=== PATIENT | female | born 1970 | race Two or more races ===

== ENCOUNTER 2018-09-13 22:26 | Emergency (ER) | payer MEDICAID, OTHER ==
[~2018-09-13] VITALS: Ht 165.1 cm; Wt 163.3 kg
[~2018-09-13 22:26] MED LIST: ASPI81CH43 PO; Atorvastatin Calcium PO; CALC500C3 PO; Verapamil Hcl PO
[2018-09-13 22:50] VITALS: BP 126/81
[2018-09-14] MEDS ORDERED: ACETAMINOPHEN 325 MG TAB PO ONE (05:45)
== END 2018-09-14 05:58 | disposition home or self-care (01) ==
LOC: ER 22:32
DX: S93.402A Sprain of unspecified ligament of left ankle, initial encounter (principal); S80.02XA Contusion of left knee, initial encounter; J45.909 Unspecified asthma, uncomplicated; Z88.0 Allergy status to penicillin; W19.XXXA Unspecified fall, initial encounter; Y93.89 Activity, other specified; Y99.8 Other external cause status; Y92.89 Other specified places as the place of occurrence of the external cause
CPT/HCPCS: 73560; 73630

== ENCOUNTER 2023-12-14 11:16 | Inpatient (IN) | payer MEDICAID, OTHER ==
[~2023-12-14] VITALS: Ht 165.1 cm; Wt 132.1 kg
[2023-12-14 13:28] LABS: Basophils # (auto) 0 10 ^3/uL (0-0.2); Basophils % (auto) 0.4 % (0.0-2.0); Eosinophils # (auto) 0.1 10 ^3/uL (0-0.8); Eosinophils % (auto) 1.2 % (0.0-7.0); Hematocrit 44.9 % (36.0-46.0); Hemoglobin 15.7 g/dL (12.2-16.2); Lymphocytes # (auto) 1.5 10 ^3/uL (0.4-5.4); Lymphocytes % (auto) 19.5 % (10.0-50.0); Mean Corpuscular Hemoglobin 31.1 pg (28.0-32.0); Mean Corpuscular Hgb Conc. 34.9 g/dL (32.0-36.0); Mean Corpuscular Volume 89.1 fL (80.0-100.0); Monocytes # (auto) 0.5 10 ^3/uL (0-1.3); Monocytes % (auto) 6.9 % (0.0-12.0); Neutrophils # (auto) 5.4 10 ^3/uL (1.6-8.6); Platelet Count (auto) 231 10^3/uL (140-450); Red Blood Cells 5.04 10^6/uL (4.0-5.20); Red Cell Distribution Width 13.7 % (11.8-14.3); White Blood Cell 7.5 10^3/uL (4.4-10.8)
[2023-12-14 13:48] LABS: Alanine Aminotransferase 28 U/L (7-40); Albumin 4.2 g/dL (3.2-4.8); Alkaline Phosphatase 100 U/L (46-116); Anion Gap 7 (5-15); Aspartate Aminotransferase 18 U/L (13-40); Bilirubin, Total 0.5 mg/dL (0.2-1.0); Blood Urea Nitrogen 12 mg/dL (9-23); Calcium 9.2 mg/dL (8.7-10.4); Carbon Dioxide 27 mmol/L (20-30); Chloride 106 mmol/L (98-107); Glucose 114 mg/dL (74-106); Magnesium 1.9 mg/dL (1.6-2.6); Potassium 4.1 mmol/L (3.5-5.1); Sodium 140 mmol/L (136-145)
[2023-12-14 13:49] LABS: Total Protein 7.3 g/dL (5.7-8.2)
[2023-12-14 15:55] LABS: Urine Bacteria None Seen /hpf (None Seen)
[2023-12-14 16:16] LABS: Urine Blood Negative /uL (Negative); Urine Clarity Clear (Clear); Urine Color Yellow (Yellow); Urine Hyaline Cast FEW /lpf (0 - 2); Urine Mucus FEW (None Seen); Urine Protein, UAD TRACE (Negative); Urine Specific Gravity 1.017 (1.001-1.035); Urine Urobilinogen Normal (Negative); Urine WBC 3 /hpf (0 - 5); Urine pH 6.5 (5.0-9.0)
[2023-12-14] MEDS ORDERED: MORPHINE SULFATE INJ 2 MG/ml SYRG IV PRN (16:45)
[2023-12-14] MEDS ORDERED: NITROGLYCERIN 0.4 MG SL TAB SL PRN (16:45)
[2023-12-14] MEDS ORDERED: DOCUSATE SOD 100 MG CAP PO PRN (16:45)
[2023-12-14] MEDS ORDERED: ONDANSETRON HCL 4 MG/2 ML VIAL IV PRN (16:45)
[2023-12-14] MEDS ORDERED: KETOROLAC TROMETH 30 MG/ML 1ML VIAL IV PRN (17:00)
[2023-12-14 18:02] VITALS: PULSE 88; RESP 16; O2SAT 94
[2023-12-14] MEDS: ASPirin 325 MG TAB PO ONE (18:10)
[2023-12-14] MEDS: SODIUM CHLORIDE 0.9% 500 ML IV ONE (18:17)
[2023-12-14] MEDS: NITROGLYCERIN 0.4 MG SL TAB SL ONE (18:17)
[2023-12-14] MEDS: ENOXAPARIN SOD 40 MG/0.4 ML SYRINGE SC SCH (18:34)
[2023-12-14 19:09] LABS: INR 1.08 (0.9-1.15); Partial Thromboplastin Time 27.9 SEC (24.5-34.5); Prothrombin Time 11.4 sec (9.3-11.8)
[2023-12-14 19:25] VITALS: PULSE 76; RESP 20; O2SAT 92
[2023-12-14 21:13] LABS: Amphetamine Screen, Urine Neg (NEGATIVE); Barbiturate Scree,Urine Neg (NEGATIVE); Benzodiazephine Screen, Urine Neg (NEGATIVE); Cocaine Screen, Urine Neg (NEGATIVE); Opiate Scree,Urine Neg (NEGATIVE)
[2023-12-14 21:14] LABS: Cannabinoid Screen, Urine Neg (NEGATIVE); Phencyclidine Screen, Urine Neg (NEGATIVE)
[2023-12-14 21:14] LABS: Rapid Influenza A Negative (Negative); Rapid Influenza B Negative (Negative)
[2023-12-14 21:17] LABS: COVID19 ANTIGEN SOFIA FIA NEGATIVE (NEGATIVE)
[2023-12-15] VITALS (12 sets, daily range): BP systolic 105–142; BP diastolic 54–90; PULSE 67–85; RESP 12–24; TEMP 97.5–98; O2SAT 94–99
[2023-12-15 06:48] LABS: Chloride 110 mmol/L (98-107); Potassium 3.9 mmol/L (3.5-5.1); Sodium 142 mmol/L (136-145)
[2023-12-15 06:49] LABS: Anion Gap 9 (5-15); Carbon Dioxide 23 mmol/L (20-30)
[2023-12-15 06:54] LABS: BUN/Creatinine Ratio 20.3 (10.0-20.0); Blood Urea Nitrogen 12 mg/dL (9-23); Glucose 104 mg/dL (74-106); Triglycerides 111 mg/dL (< 150)
[2023-12-15 06:55] LABS: LDL Cholesterol 139 mg/dL (< 100)
[2023-12-15 06:56] LABS: Cholesterol 179 mg/dL (< 200); HDL Cholesterol 37 mg/dL (40-59)
[2023-12-15 07:12] LABS: Basophils # (auto) 0 10 ^3/uL (0-0.2); Basophils % (auto) 0.5 % (0.0-2.0); Eosinophils # (auto) 0.1 10 ^3/uL (0-0.8); Eosinophils % (auto) 2.1 % (0.0-7.0); Hematocrit 42.1 % (36.0-46.0); Lymphocytes % (auto) 31.5 % (10.0-50.0); Mean Corpuscular Hemoglobin 30.5 pg (28.0-32.0); Mean Corpuscular Hgb Conc. 33.2 g/dL (32.0-36.0); Mean Corpuscular Volume 91.9 fL (80.0-100.0); Monocytes # (auto) 0.5 10 ^3/uL (0-1.3); Neutrophils # (auto) 3.7 10 ^3/uL (1.6-8.6); Neutrophils % (auto) 57.9 % (37.0-80.0); Nucleated Red Blood Cells % 0.1 %; Platelet Count (auto) 203 10^3/uL (140-450); Red Blood Cells 4.58 10^6/uL (4.0-5.20); Red Cell Distribution Width 14.4 % (11.8-14.3); White Blood Cell 6.4 10^3/uL (4.4-10.8)
[2023-12-15] MEDS ORDERED: ANGIOMAX 250 MG VIAL IV ONE (08:42)
[2023-12-15] MEDS ORDERED: VERAPAMIL 2.5MG/ML INJ 2ML VIAL IV ONE (08:42)
[2023-12-15] MEDS ORDERED: HEPARIN SODIUM (PORCINE) 5000 UNITS/ML 1ML VIAL ONE (08:42)
[2023-12-15] MEDS ORDERED: fentaNYL CITRATE 100 MCG/2 ML VL ONE (08:43)
[2023-12-15] MEDS ORDERED: MIDAZOLAM HCL 2MG/2ML 2ml VIAL (1mg/ml) ONE (08:43)
[2023-12-15] MEDS ORDERED: SODIUM CHL 0.9% 0 ML ONE (08:43)
[2023-12-15] MEDS ORDERED: LIDOCAINE 2%HCL (LOCAL ANESTH.) INJ 20ML MDV ONE (08:45)
[2023-12-15] MEDS ORDERED: CHOL20007 PO (14:18)
[2023-12-16 08:47] LABS: Hepatitis B Surface Antigen Negative (Negative)
[2023-12-16 09:08] LABS: Hepatitis C Antibody Negative (Negative)
[2023-12-16] MEDS ORDERED: ENOXAPARIN SOD 40 MG/0.4 ML SYRINGE SC SCH (18:00)
== END 2023-12-15 19:15 | disposition home or self-care (01) | DRG 190 ==
LOC: ER 11:16 → TELE 16:43 → TELE-CENTR 12-15 11:30
PROVIDERS: ADMIT Internal Medicine Geriatric Medicine; ATTEND Internal Medicine Geriatric Medicine
PROC: 4A023N7 Measurement of Cardiac Sampling and Pressure, Left Heart, Percutaneous Approach (ICD-10-PCS; principal; 2023-12-15)
PROC: B211YZZ Fluoroscopy of Multiple Coronary Arteries using Other Contrast (ICD-10-PCS; 2023-12-15)
PROC: B215YZZ Fluoroscopy of Left Heart using Other Contrast (ICD-10-PCS; 2023-12-15)
DX: I21.B Myocardial infarction with coronary microvascular dysfunction (principal); E66.01 Morbid (severe) obesity due to excess calories; I21.A1 Myocardial infarction type 2; Z20.822 Contact with and (suspected) exposure to COVID-19; I10 Essential (primary) hypertension; J45.909 Unspecified asthma, uncomplicated; Z68.42 Body mass index [BMI] 45.0-49.9, adult; Z98.84 Bariatric surgery status; Z88.0 Allergy status to penicillin; Z83.3 Family history of diabetes mellitus; Z80.1 Family history of malignant neoplasm of trachea, bronchus and lung; Z82.3 Family history of stroke
CPT/HCPCS: 36415; 70450; 71045; 80048; 80053; 80061; 80307; 81001; 82962; 83036; 83605; 83735; 84443; 84484; 85025; 85610; 85730; 86803; 87340; 87426; 87804; 93005; 93306; 93458; 99152; G0378; J2250

== ENCOUNTER 2024-08-26 16:07 | Emergency (ER) | payer MEDICAID ==
[~2024-08-26] VITALS: Ht 165.1 cm; Wt 133.9 kg
[~2024-08-26 16:07] MED LIST changes: -CALC500C3 PO; +CHOL20007 PO
--- NOTE | 2024-08-26 16:17 | ECG ---
[facility] Test Date: 2024-08-26 Test Time: 16:15:54 Pat Name: PRESTON BAPTISTE Department: ER Room: Gender: F Spray Machine Operator: EZIO : 1970 Requested By: MICHELE HOYT Order Number: [id number] Reading MD: Antolin Bales Measurements Intervals [place] Rate: 165 P: 0 SC: 0 QRS: 3 QRSD: 79 T: 99 QT: 258 QTc: 428 Interpretive Statements Supraventricular tachycardia Low voltage, precordial leads Nonspecific T abnormalities, lateral leads Electronically Signed On 08-30-2024 20:49:40 PDT by Antolin Bales Please click the below link to view image of tracing.
--- NOTE | 2024-08-26 16:25 | ED.PDOC ---
HPI Comments 54-year-old female with a known history of SVT presents here with what appears to be SVT. Patient states she was sitting when she suddenly became diaphoretic pale began to feel weak. 911 was called and they found her in SVT at a rate of 165. She states she has had 2 episodes of SVT before and she has had adenosine as has converted. She has seen the internal medicine nurse practitioner Dr. Kareem VAUGHAN who said if this continues she may need an ablation. Patient states no recent cough cold runny nose fever or chills. Chief Complaint: Palpitations Time Seen by MD: 16:20 Primary Care Provider: PT [facility] Allergies: Coded Allergies: Penicillins (Verified Allergy, Intermediate, 11/20/15) GENERALIZED ITCHING Home Meds Active Scripts Aspirin (Asa) 81 Mg Ch, 81 MG PO DAILY, #30 Prov:DEANNA COBOS MD 11/22/15 [Atorvastatin Calcium] 20 MG TB No Conflict Check, 40 MG PO HS, #30 Prov:DEANNA COBOS MD 11/22/15 [Verapamil Hcl] 120 MG TB No Conflict Check, 240 MG PO DAILY, #30 Prov:DEANNA COBOS MD 11/22/15 Reported Medications Cholecalciferol (VITAMIN D3) 2,000 Unit Tab, PO DAILY, TAB 12/15/23 Past Medical History PAST MEDICAL HISTORY: Asthma Past Medical History (Other): SVT Surgical History: Hernia Repair RADIOLOGY SPECIAL PROCEDURE TECH History: No Pertinent RADIOLOGY SPECIAL PROCEDURE TECH History Family History Family History: Unobtainable Social History Smoker: Non-Smoker Alcohol: Denies ETOH Use Drugs: Denies Drug Use Lives In: Home All Other Systems: Reviewed and Negative Physical Exam General Appearance: Moderate Distress, Normal HEENT: Normal ENT Inspection, Pharynx Normal, TMs Normal Neck: Full Range of Motion, Non-Tender, Normal, Normal Inspection Respiratory: Chest Non-Tender, Lungs Clear, No Accessory Muscle Use, No Respiratory Distress, Normal Breath Sounds Cardiovascular: No Edema, No JVD, No Murmur, No Gallop, Normal Peripheral Pulses, Tachycardia (Rate of 165-1 77) Breast Exam: Deferred Gastrointestinal: No Organomegaly, Non Tender, No Pulsatile Mass, Normal Bowel Sounds, Soft Genitalia: Deferred Pelvic: Deferred Rectal: Deferred Extremities: No calf tenderness, Normal capillary refill, Normal inspection, Normal range of motion, Non-tender, No pedal edema Musculoskeletal : Apperance: Normal Neurologic: Alert, management planner II-XII nml as Tested, No Motor Deficits, Normal Affect, Normal Mood, No Sensory Deficits Cerebellar Function: Normal Reflexes: Normal Skin: Dry, Normal Color, Warm Lymphatic: No Adenopathy EKG EKG #1: Comments Supraventricular tachycardia rate of 165, nonspecific ST changes EKG #2: Comments EKG 2. Sinus tachycardia rate of [address] changes. Was a procedure done? Was a procedure done?: Yes Sedation Sedation?: No Cardioversion Vagal maneuver: Were attempted Attempts: x2 Resulted Rhythm: ST Direct Supervision: Yes Informed consent obtained: Yes Risks/benefits/alt described: Yes Notes Adenosine 6 mg IV given with no resolution, adenosine 12 mg IV given with resolution of symptoms into sinus tachycardia. Patient tolerated procedure well. CP Differential Dx Differential Diagnosis: Anxiety / Panic Attack, Pulmonary Embolus, Other Differential Diagnosis: Other Differential Diagnosis: Other Comment PE, heart block, electrolyte abnormality, SVT, sinus tachycardia X-Ray, Labs, Meds, VS Vital Signs Date Time Temp Pulse Resp B/P (MAP) Pulse Ox O2 Delivery O2 Flow Rate FiO2 08/26/24 16:38 109 08/26/24 16:15 97.8 168 22 152/93 (112) 98 97.8 08/26/24 16:15 165 Lab Test 08/26/24 17:21 08/26/24 16:27 Range/Units Troponin I High Sensitivity 28 Pending White Blood Count 9.1 4.4-10.8 10^3/uL Red Blood Count 5.28 H 4.0-5.20 10^6/uL Hemoglobin 15.8 12.2-16.2 g/dL Hematocrit 47.5 H 36.0-46.0 % Mean Corpuscular Volume 90.0 80.0-100.0 fL Mean Corpuscular Hemoglobin 29.9 28.0-32.0 pg Mean Corpuscular Hemoglobin Concent 33.2 32.0-36.0 g/dL Red Cell Distribution Width 14.0 11.8-14.3 % Platelet Count 256 140-450 10^3/uL Mean Platelet Volume 9.4 6.9-10.8 fL Neutrophils (%) (Auto) 58.5 37.0-80.0 % Lymphocytes (%) (Auto) 32.4 10.0-50.0 % Monocytes (%) (Auto) 7.2 0.0-12.0 % Eosinophils (%) (Auto) 1.5 0.0-7.0 % Basophils (%) (Auto) 0.4 0.0-2.0 % Neutrophils # (Auto) 5.3 1.6-8.6 10 ^3/uL Lymphocytes # (Auto) 2.9 0.4-5.4 10 ^3/uL Monocytes # (Auto) 0.7 0-1.3 10 ^3/uL Eosinophils # (Auto) 0.1 0-0.8 10 ^3/uL Basophils # (Auto) 0 0-0.2 10 ^3/uL Nucleated Red Blood Cells 0.2 % Sodium Level 141 136-145 mmol/L Potassium Level 4.3 3.5-5.1 mmol/L Chloride Level 107 98-107 mmol/L Carbon Dioxide Level 26 20-31 mmol/L Anion Gap 8 5-15 Blood Urea Nitrogen 14 9-23 mg/dL Creatinine 0.67 0.550-1.02 mg/dL Glomerular Filtration Rate Calc 103 >90 mL/min BUN/Creatinine Ratio 20.9 H 10.0-20.0 Serum Glucose 125 H 74-106 mg/dL Calcium Level 9.2 8.7-10.4 mg/dL Magnesium Level 2.0 1.6-2.6 mg/dL Total Bilirubin 0.3 0.2-1.0 mg/dL Aspartate Amino Transferase (AST) 24 13-40 U/L Alanine Aminotransferase (ALT) 32 7-40 U/L Alkaline Phosphatase 91 46-116 U/L Total Protein 7.4 5.7-8.2 g/dL Albumin 4.3 3.2-4.8 g/dL Current Medications Medications (Trade) Dose Ordered Sig/Elida Route Start Time Stop Time Status Last Admin Adenosine (Adenosine) 6 mg ONCE ONCE IV 08/26/24 16:30 08/26/24 16:31 DC 08/26/24 16:30 Adenosine (Adenosine) 12 mg ONCE ONCE IV 08/26/24 16:30 08/26/24 16:31 DC 08/26/24 16:30 Sodium Chloride 1,000 ml @ 1,000 mls/hr Q1H ONCE IV 08/26/24 16:30 08/26/24 17:29 DC 08/26/24 16:30 54-year-old female with a known history of SVT. Presents here and SVT. Patient was initially given 6 mg adenosine IV without resolution. She was then given additional 12 mg IV with change in rhythm to sinus tachycardia. Patient has been given 1 L IV fluids. She is clinically feeling much better. Blood work has been done she is largely unremarkable. Magnesium and potassium within normal limits. However patient is still tachycardic at a proximally 109 appears to be sinus tachycardia. However heart rate does not seem to be coming down. Concerned about possible PE. CT angio of the chest has been ordered . However patient states that she was thinking about her son. I advised her to think about happy thoughts and I would recheck on her /2 hour. On my read /2 hour recheck heart rate had improved into the 90s. She is asymptomatic. At this time I have canceled the CT angio of the chest I have discharged the patient home. Patient to follow up with internal medicine nurse practitioner and PCP in 2-3 days and return to the ER if symptoms worsen or persist. Time of 1ST Reevaluation: 17:14 Reevaluation 1ST: Improved Patient Education/Counseling: Diagnosis, Treatment, Prognosis Family Education/Counseling: No Family Present Departure 1 Departure Time of Disposition: 17:46 Impression: Primary Impression: Paroxysmal SVT (supraventricular tachycardia) Disposition: 01 HOME / SELF CARE / HOMELESS Condition: Stable Additional Instructions: Follow up with the primary care physician and internal medicine nurse practitioner. Return to the ER if symptoms worsen or persist. It is important you speak to the internal medicine nurse practitioner regarding potential ablation for your frequent SVT episodes. Discharged With: Self Critical Care Note Critical Care Time?: Yes (35 min-critical care time only) Critical care comment: Nursing staff called me to triage to immediately see this patient. Patient had a heart rate of 167. Patient was diaphoretic and in moderate distress on my in itial evaluation. Concern for immediate cardiac deterioration. Time spent evaluating the patient, speaking to nursing staff, attempting to contact a internal medicine nurse practitioner, multiple re-evaluations Stability Stability form required: No Heart Score Heart Score: Heart Score Response (Comments) Value History N/A 0 EKG N/A 0 Age N/A 0 Risk Factors N/A 0 Troponin N/A 0 Total 0 ALIZE NIEVES MD Aug 26, 2024 16:25
[2024-08-26] MEDS: ADENOSINE 6 MG/2 ML INJ IV ONE ×2 (16:30)
[2024-08-26] MEDS: SODIUM CHLORIDE 0.9% 1,000 ML IV ONE (16:30)
[2024-08-26 16:59] LABS: Alanine Aminotransferase 32 U/L (7-40); Albumin 4.3 g/dL (3.2-4.8); Alkaline Phosphatase 91 U/L (46-116); Anion Gap 8 (5-15); Aspartate Aminotransferase 24 U/L (13-40); BUN/Creatinine Ratio 20.9 (10.0-20.0); Blood Urea Nitrogen 14 mg/dL (9-23); Calcium 9.2 mg/dL (8.7-10.4); Carbon Dioxide 26 mmol/L (20-31); Chloride 107 mmol/L (98-107); Potassium 4.3 mmol/L (3.5-5.1); Sodium 141 mmol/L (136-145); Total Protein 7.4 g/dL (5.7-8.2)
[2024-08-26 17:04] LABS: Bilirubin, Total 0.3 mg/dL (0.2-1.0); Glucose 125 mg/dL (74-106)
[2024-08-26 17:09] LABS: Basophils # (auto) 0 10 ^3/uL (0-0.2); Basophils % (auto) 0.4 % (0.0-2.0); Eosinophils # (auto) 0.1 10 ^3/uL (0-0.8); Eosinophils % (auto) 1.5 % (0.0-7.0); Hematocrit 47.5 % (36.0-46.0); Hemoglobin 15.8 g/dL (12.2-16.2); Lymphocytes # (auto) 2.9 10 ^3/uL (0.4-5.4); Lymphocytes % (auto) 32.4 % (10.0-50.0); Mean Corpuscular Hemoglobin 29.9 pg (28.0-32.0); Mean Corpuscular Hgb Conc. 33.2 g/dL (32.0-36.0); Monocytes # (auto) 0.7 10 ^3/uL (0-1.3); Monocytes % (auto) 7.2 % (0.0-12.0); Neutrophils # (auto) 5.3 10 ^3/uL (1.6-8.6); Neutrophils % (auto) 58.5 % (37.0-80.0); Nucleated Red Blood Cells % 0.2 %; Platelet Count (auto) 256 10^3/uL (140-450); Red Blood Cells 5.28 10^6/uL (4.0-5.20); White Blood Cell 9.1 10^3/uL (4.4-10.8)
[2024-08-26 18:30] VITALS: BP 121/55; PULSE 77; RESP 20; TEMP 98.2; O2SAT 99
--- NOTE | 2024-08-26 19:12 | ECG ---
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
== END 2024-08-26 18:51 | disposition home or self-care (01) ==
LOC: ER 16:11
DX: I47.19 Other supraventricular tachycardia (principal); J45.909 Unspecified asthma, uncomplicated; Z98.890 Other specified postprocedural states; Z88.0 Allergy status to penicillin; Z79.899 Other long term (current) drug therapy
CPT/HCPCS: 36415; 80053; 83735; 84484; 85025; 93005; 96360; 99291; J0153; J7030